=== PATIENT | female | born 1975 | race Caucasian/White ===

== ENCOUNTER 2017-03-11 19:18 | Emergency (ER) | payer BC ==
[~2017-03-11] VITALS: Ht 167.6 cm; Wt 79.0 kg
[~2017-03-11 19:18] MED LIST: NOTE
[2017-03-11 19:22] VITALS: TEMP 36.5; Ht 167.6 cm; Wt 79.0 kg
[2017-03-11] MEDS ORDERED: SODIUM CHLORIDE 0.9% 1000ML 1,000 ML IV STA (19:39)
[2017-03-11] MEDS ORDERED: ONDANSETRON INJ 2 MG/ML 2 ML VIAL IV STA (19:39)
[2017-03-11] MEDS ORDERED: MoRPHine SULFATE 4 MG/ML 1 ML CARP\\VIAL IV PRN (19:45)
--- NOTE | 2017-03-11 20:09 | DIAGNOSTIC IMAGING REPORT ---
SINGLE VIEW CHEST CLINICAL HISTORY: Generalized abdominal pain. FINDINGS: An AP, portable, upright chest radiograph is obtained. No prior studies are available for comparison at the time of dictation. The cardiomediastinal silhouette is unremarkable. The lungs and pleural spaces are clear. No pneumothorax is seen. The bony thorax is grossly intact. IMPRESSION: No active disease in the chest. Electronically signed by: Chung Forte M.D. 03/11/2017 8:08 PM Dictated Date/Time: 03/11/2017 8:07 PM
[2017-03-11 20:10] LABS: BASO % 0.1 %; BASO ABS # 0.01 K/uL (0-0.2); EOS % 3.6 %; EOS ABS # 0.26 K/uL (0-0.5); HEMATOCRIT 35.3 % (37-47); HEMOGLOBIN 11.6 g/dL (12.0-16.0); IG# 0.01 K/uL (0.00-0.02); LYMPH % 25.8 %; LYMPH ABS # 1.86 K/uL (1.2-3.4); MEAN CELL VOLUME 81.3 fL (80-100); MEAN CORPUSCULAR HEMOGLOBIN 26.7 pg (25-34); MEAN CORPUSCULAR HGB CONC 32.9 g/dl (32-36); MEAN PLATELET VOLUME 9.8 fL (7.4-10.4); MONO ABS # 0.58 K/uL (0.11-0.59); NEUT % 62.4 %; NEUT ABS # 4.49 K/uL (1.4-6.5); PLATELET COUNT 235 K/uL (130-400); RED CELL DISTRIBUTION WIDTH CV 15.7 % (11.5-14.5); WHITE BLOOD COUNT 7.21 K/uL (4.8-10.8)
[2017-03-11] MEDS ORDERED: LEVO50TA PO (20:25)
[2017-03-11] MEDS ORDERED: CYAN500T13 PO (20:25)
[2017-03-11] MEDS ORDERED: FURO-85 PO (20:25)
[2017-03-11] MEDS ORDERED: PLEC3TAB PO (20:25)
[2017-03-11] MEDS ORDERED: RANI300T2 PO (20:25)
[2017-03-11] MEDS ORDERED: METO1TAB54 PO (20:25)
[2017-03-11] MEDS ORDERED: SUCR1TAB29 PO (20:25)
[2017-03-11] MEDS ORDERED: MISC4CAP PO (20:25)
[2017-03-11] MEDS ORDERED: CALC-44 PO (20:25)
[2017-03-11] MEDS ORDERED: CLON0.5T3 PO (20:25)
[2017-03-11] MEDS ORDERED: AMT50 PO (20:25)
[2017-03-11] MEDS ORDERED: ERGO500011 PO (20:25)
[2017-03-11] MEDS ORDERED: POTA10CA28 PO (20:25)
[2017-03-11] MEDS ORDERED: PANT40TA PO (20:25)
[2017-03-11] MEDS ORDERED: HYDR-3124 PO (20:25)
[2017-03-11] MEDS ORDERED: VNTHFA/IN INH (20:25)
[2017-03-11] MEDS ORDERED: ONDA8TAB6 PO (20:25)
[2017-03-11 20:28] LABS: ALBUMIN 3.8 gm/dl (3.4-5.0); ALT/SGPT 25 U/L (12-78); BLOOD UREA NITROGEN 16 mg/dl (7-18); CALCIUM 8.8 mg/dl (8.5-10.1); CARBON DIOXIDE 23 mmol/L (21-32); CREATININE 0.62 mg/dl (0.60-1.20); GLUCOSE 107 mg/dl (70-99); LIPASE 122 U/L (73-393); POTASSIUM 3.6 mmol/L (3.5-5.1); SODIUM 138 mmol/L (136-145)
[2017-03-11 20:30] LABS: ALKALINE PHOSPHATASE 83 U/L (45-117); AST/SGOT 18 U/L (15-37); TOTAL PROTEIN 7.9 gm/dl (6.4-8.2)
--- NOTE | 2017-03-11 20:40 | DIAGNOSTIC IMAGING REPORT ---
CT SCAN OF THE ABDOMEN AND PELVIS WITHOUT IV CONTRAST CLINICAL HISTORY: Left lower quadrant abdominal pain. Nausea and vomiting. COMPARISON STUDY: No priors. TECHNIQUE: CT scan of the abdomen and pelvis is performed from the lung bases to the proximal femora. Images are reviewed in the axial, sagittal, and coronal planes. IV contrast was not administered for this examination as per the referring clinician. Note that the examination was performed suboptimal fashion without oral and IV contrast. A dose lowering technique was utilized adhering to the principles of ALARA. CT DOSE: 419.84 mGy.cm FINDINGS: Lung bases: The heart is normal in size and without pericardial effusion. The lung bases are clear. Liver: The unenhanced liver is normal in size, contour, and attenuation. There is no intrahepatic biliary ductal dilatation. Gallbladder: Surgically absent noting clips in the gallbladder fossa. Spleen: Normal in size and attenuation. A 1.6 cm low-attenuation lesion in the spleen is seen on image #84. Statistically this is of doubtful significance. Pancreas: Unremarkable. Adrenal glands: Unremarkable. Kidneys: The unenhanced kidneys are normal in size and without hydronephrosis. There are no renal calculi identified. There is no evidence of contour deforming renal mass lesion. Abdominal vasculature: The abdominal aorta is normal in course and caliber. Bowel: There is mild colonic diverticulosis without CT evidence of acute diverticulitis. No bowel obstruction is seen. Mild colonic fecal retention is observed. The appendix is well-visualized and normal. Peritoneum: There is no intraperitoneal free air or abdominal ascites. There is a fat-containing umbilical hernia. Lymphadenopathy: None. Pelvic viscera: The bladder is decompressed and grossly unremarkable. The uterus is surgically absent. No adnexal lesion is seen. Skeletal structures: No lytic or blastic lesions are seen. There is mild lumbar scoliosis. IMPRESSION: 1. Suboptimal examination without oral and IV contrast. 2. There are no acute infectious or inflammatory findings in the abdomen or pelvis. Electronically signed by: Chung Forte M.D. 03/11/2017 8:38 PM Dictated Date/Time: 03/11/2017 8:35 PM
[2017-03-11] MEDS ORDERED: LEVO-366 PO (21:06)
[2017-03-11] MEDS ORDERED: METR-163 PO (21:06)
[2017-03-11] MEDS ORDERED: CYAN1SUB12 SL (21:06)
[2017-03-11] MEDS ORDERED: FLUT1INH INH (21:06)
[2017-03-11] MEDS ORDERED: CALC625T13 PO (21:06)
[2017-03-11] MEDS ORDERED: CALC1CHW2 PO (21:06)
[2017-03-11] MEDS ORDERED: METF500T5 PO (21:06)
[2017-03-11] MEDS ORDERED: CLBCRM30 EXT (21:06)
[2017-03-11 21:14] VITALS: BP 112/79; PULSE 73; O2SAT 100
--- NOTE | 2017-03-11 21:16 | EMERGENCY ROOM VISIT NOTE ---
History Report prepared by Vishal: Petra Torres Under the Supervision of: Dr. Ryan Mcallister D.O. First contact with patient: 19:26 Chief Complaint: VOMITING Stated Complaint: NAUSEA,VOMITING,ABD PAIN, ALL FOR 4 DAYS History of Present Illness The patient is a 42 year old female who presents to the Emergency Room with complaints of persistent abdominal pain starting 4 days ago. She describes the pain as sharp. The pain worsens intermittently and when it does she feels nauseous and she vomits. She does not feel better after vomiting. She states that she has been unable to keep anything down except for some liquids. She saw her PCP 2 days ago and had an X-ray which did not show any constipation. She was found to have wheezing on one side and was started on antibiotics for an infection. She has been unable to take her medications because of the vomiting. She called her doctor today and was sent to the ED. She felt weak when she woke up this morning and feels like she needs to eat. She noticed today that her urine is dark. She has been coughing. She has had a headache. She has had looser stools which she attributes to only drinking liquids recently. She denies any diarrhea or fever. She denies any sick contacts. She has a history of diverticulitis and other GI problems. Source of History: patient Onset: 4 days ago Position: abdomen Quality: sharp Timing: other (persistent) Associated Symptoms: + headache, + cough, + nausea, + vomiting, + urinary symptoms, + weakness, No fevers, No diarrhea Review of Systems See HPI for pertinent positives & negatives. A total of 10 systems reviewed and were otherwise negative. Past Medical & Surgical Medical Problems: (1) Irritable colon Family History Heart disease Hypertension Social History Smoking Status: Former Smoker Alcohol Use: none Drug Use: none Marital Status: Housing Status: lives with family Occupation Status: employed Current/Historical Medications Scheduled Amitriptyline Hcl (Elavil), 50 MG PO HS Calcium Carbonate-Vitamin D (Caltrate 600+D 600-400 mg-Unit), 1 TAB PO BID Calcium Polycarbophil (Fiber Tabs), 2-3 TABS PO DAILY Cyanocobalamin (Vitamin B-12), 2,500 MCG SL DAILY Ergocalciferol (Vitamin D 51287 Unit), 1 TAB PO WK Fluticasone Furoate-Vilanterol (Breo Ellipta), 1 PUFF INH DAILY Furosemide (Lasix), 20 MG PO DAILY Levofloxacin (Levaquin), 500 MG PO DAILY Levothyroxine Sodium (Synthroid), 50 MCG PO DAILY Metformin Hcl Er (Glucophage Er), 1 TAB PO UD Metoclopramide Hcl (Reglan), 5 MG PO AC Metronidazole (Flagyl), 500 MG PO TID Pantoprazole (Protonix), 40 MG PO BID Plecanatide (Trulance), 3 MG PO DAILY Potassium Chloride (Micro-K Ext Rel), 10 MEQ PO DAILY Probiotic Product (Align), 4 MG PO DAILY Ranitidine Hcl (Zantac), 300 MG PO HS Sucralfate (Carafate), 1 GM PO ACHS Scheduled PRN Albuterol Hfa (Ventolin Hfa), 2 PUFFS INH Q6H PRN for SOB/Wheezing Clobetasol Propionate (Clobetasol Propionate Cream 0.05%), 1 APPLN EXT HS PRN for AFFECTED AREA Clonazepam (Klonopin), 0.5 MG PO TID PRN for Anxiety Hydroxyzine Hcl (Atarax), 25 MG PO TID PRN for Ondansetron Hcl (Zofran), 8 MG PO Q8 PRN for Nausea Allergies Coded Allergies: Shellfish (Verified Allergy, Severe, ANAPHYLAXIS, 03/11/17) Hydromorphone (Verified Allergy, Intermediate, itching, 10/31/12) Uncoded Allergies: SULFA (Allergy, Severe, swelling, 10/31/12) Physical Exam Vital Signs Date Time Temp Pulse Resp B/P (MAP) Pulse Ox O2 Delivery O2 Flow Rate FiO2 03/11/17 21:14 73 18 112/79 100 Room Air 03/11/17 19:22 36.5 89 18 136/91 99 Room Air Physical Exam CONSTITUTIONAL/VITAL SIGNS: Reviewed / noted above. GENERAL: Non-toxic in appearance. INTEGUMENTARY: Warm, dry, and [place]. HEAD: Normocephalic. EYES: without scleral icterus or trauma. ENT/OROPHARYNX: clear and moist. LYMPHADENOPATHY/NECK: Is supple without lymphadenopathy or meningismus. RESPIRATORY: Lungs clear and equal. CARDIOVASCULAR: Regular rate and rhythm. GI/ABDOMEN: Soft. Epigastric and LUQ tenderness to palpation. No organomegaly or pulsatile mass. No rebound or guarding. Normal bowel sounds. EXTREMITIES: Warm and well perfused. BACK: No CVA tenderness. NEUROLOGICAL: Intact without focal deficits. PSYCHIATRIC: normal affect. MUSCULOSKELETAL: Normally developed with good muscle tone. Medical Decision & Procedures ER Provider Diagnostic Interpretation: X ray results and stated below per my interpretation and radiology interpretation. Radiology results as stated below per my review and radiologist interpretation: SINGLE VIEW CHEST CLINICAL HISTORY: Generalized abdominal pain. FINDINGS: An AP, portable, upright chest radiograph is obtained. No prior studies are available for comparison at the time of dictation. The cardiomediastinal silhouette is unremarkable. The lungs and pleural spaces are clear. No pneumothorax is seen. The bony thorax is grossly intact. IMPRESSION: No active disease in the chest. Electronically signed by: Chung Forte M.D. 03/11/2017 8:08 PM Dictated Date/Time: 03/11/2017 8:[address] SCAN OF THE ABDOMEN AND PELVIS WITHOUT IV CONTRAST CLINICAL HISTORY: Left lower quadrant abdominal pain. Nausea and vomiting. COMPARISON STUDY: No priors. TECHNIQUE: CT scan of the abdomen and pelvis is performed from the lung bases to the proximal femora. Images are reviewed in the axial, sagittal, and coronal planes. IV contrast was not administered for this examination as per the referring clinician. Note that the examination was performed suboptimal fashion without oral and IV contrast. A dose lowering technique was utilized adhering to the principles of ALARA. CT DOSE: 419.84 mGy.cm FINDINGS: Lung bases: The heart is normal in size and without pericardial effusion. The lung bases are clear. Liver: The unenhanced liver is normal in size, contour, and attenuation. There is no intrahepatic biliary ductal dilatation. Gallbladder: Surgically absent noting clips in the gallbladder fossa. Spleen: Normal in size and attenuation. A 1.6 cm low-attenuation lesion in the spleen is seen on image #84. Statistically this is of doubtful significance. Pancreas: Unremarkable. Adrenal glands: Unremarkable. Kidneys: The unenhanced kidneys are normal in size and without hydronephrosis. There are no renal calculi identified. There is no evidence of contour deforming renal mass lesion. Abdominal vasculature: The abdominal aorta is normal in course and caliber. Bowel: There is mild colonic diverticulosis without CT evidence of acute diverticulitis. No bowel obstruction is seen. Mild colonic fecal retention is observed. The appendix is well-visualized and normal. Peritoneum: There is no intraperitoneal free air or abdominal ascites. There is a fat-containing umbilical hernia. Lymphadenopathy: None. Pelvic viscera: The bladder is decompressed and grossly unremarkable. The uterus is surgically absent. No adnexal lesion is seen. Skeletal structures: No lytic or blastic lesions are seen. There is mild lumbar scoliosis. IMPRESSION: 1. Suboptimal examination without oral and IV contrast. 2. There are no acute infectious or inflammatory findings in the abdomen or pelvis. Electronically signed by: Chung Forte M.D. 03/11/2017 8:38 PM Dictated Date/Time: 03/11/2017 8:35 PM Laboratory Results 03/11/17 20:00 Red Blood Count 4.34, Mean Corpuscular Volume 81.3, Mean Corpuscular Hemoglobin 26.7, Mean Corpuscular Hemoglobin Concent 32.9, Mean Platelet Volume 9.8, Neutrophils (%) (Auto) 62.4, Lymphocytes (%) (Auto) 25.8, Monocytes (%) (Auto) 8.0, Eosinophils (%) (Auto) 3.6, Basophils (%) (Auto) 0.1, Neutrophils # (Auto) 4.49, Lymphocytes # (Auto) 1.86, Monocytes # (Auto) 0.58, Eosinophils # (Auto) 0.26, Basophils # (Auto) 0.01 03/11/17 20:00 Test 03/11/17 19:34 03/11/17 20:00 Urine Color DK YELLOW Urine Appearance CLEAR (CLEAR) Urine pH 5.5 (4.5-7.5) Urine Specific [place] 1.030 (1.000-1.030) Urine Protein TRACE (NEG) Urine Glucose (UA) NEG (NEG) Urine Ketones TRACE (NEG) Urine Occult Blood 2+ (NEG) Urine Nitrite NEG (NEG) Urine Bilirubin NEG (NEG) Urine Urobilinogen NEG (NEG) Urine Leukocyte Esterase SMALL (NEG) Urine WBC (Auto) 1-5 /hpf (0-5) Urine RBC (Auto) >30 /hpf (0-4) Urine Hyaline Casts (Auto) 1-5 /lpf (0-5) Urine Epithelial Cells (Auto) >30 /lpf (0-5) Urine Bacteria (Auto) NEG (NEG) Urine Pathogenic Casts /lpf (0) Urine Mucus PRESENT (NONE PRSENT) Urine Test NEG (NEG) White Blood Count 7.21 K/uL (4.8-10.8) Red Blood Count 4.34 M/uL (4.2-5.4) Hemoglobin 11.6 g/dL (12.0-16.0) Hematocrit 35.3 % (37-47) Mean Corpuscular Volume 81.3 fL (80-100) Mean Corpuscular Hemoglobin 26.7 pg (25-34) Mean Corpuscular Hemoglobin Concent 32.9 g/dl (32-36) Platelet Count 235 K/uL (130-400) Mean Platelet Volume 9.8 fL (7.4-10.4) Neutrophils (%) (Auto) 62.4 % Lymphocytes (%) (Auto) 25.8 % Monocytes (%) (Auto) 8.0 % Eosinophils (%) (Auto) 3.6 % Basophils (%) (Auto) 0.1 % Neutrophils # (Auto) 4.49 K/uL (1.4-6.5) Lymphocytes # (Auto) 1.86 K/uL (1.2-3.4) Monocytes # (Auto) 0.58 K/uL (0.11-0.59) Eosinophils # (Auto) 0.26 K/uL (0-0.5) Basophils # (Auto) 0.01 K/uL (0-0.2) RDW Standard Deviation 47.0 fL (36.4-46.3) RDW Coefficient of Variation 15.7 % (11.5-14.5) Immature Granulocyte % (Auto) 0.1 % Immature Granulocyte # (Auto) 0.01 K/uL (0.00-0.02) Anion Gap 11.0 mmol/L (3-11) Est Creatinine Clear Calc Drug Dose 125.3 ml/min Estimated GFR () 128.9 Estimated GFR (Non- 111.2 BUN/Creatinine Ratio 25.4 (10-20) Calcium Level 8.8 mg/dl (8.5-10.1) Total Bilirubin 0.3 mg/dl (0.2-1) Direct Bilirubin < 0.1 mg/dl (0-0.2) Aspartate Amino Transf (AST/SGOT) 18 U/L (15-37) Alanine Aminotransferase (ALT/SGPT) 25 U/L (12-78) Alkaline Phosphatase 83 U/L (45-117) Total Protein 7.9 gm/dl (6.4-8.2) Albumin 3.8 gm/dl (3.4-5.0) Lipase 122 U/L (73-393) Laboratory results as stated above per my review. Medications Administered Medications (Trade) Dose Ordered Sig/Renetta Route Start Time Stop Time Status Last Admin Dose Admin Sodium Chloride 1,000 ml @ 999 mls/hr Q1H1M STAT IV 03/11/17 19:39 03/11/17 20:39 DC 03/11/17 20:09 999 MLS/HR Ondansetron HCl (Zofran Inj) 4 mg NOW STAT IV 03/11/17 19:39 03/11/17 19:42 DC 03/11/17 20:10 4 MG Morphine Sulfate (MoRPHine SULFATE INJ) 4 mg Q1H PRN IV 03/11/17 19:45 03/25/17 19:44 03/11/17 20:10 4 MG ECG Indication: weakness Rate (beats per minute): 80 Rhythm: normal sinus Findings: no ectopy, other (no acute injury) ED Course 1930: Previous medical records were reviewed. The patient was evaluated in room B12B. A complete history and physical examination was performed. 1938: Zofran Inj 4 mg IV, NSS 1000 ml @ 999 mls/hr IV. 1944: Morphine Sulfate 4 mg IV. 2106: On reevaluation, the patient is resting comfortably. I discussed the results and findings with the patient. She verbalized agreement of the treatment plan. She was discharged home. Medical Decision Differential diagnosis: Etiologies such as gastroenteritis, food borne illness, infections, appendicitis , diverticulitis, inflammatory bowel disease, obstruction, GI bleed, biliary pathology, as well as others were entertained. This is a 42-year-old female who presents to the ED with a chief complaint of nausea and vomiting as well as upper abdominal pain. The patient states that she has had the symptoms for about 4 days. She denies having any diarrhea. She has been trying to keep down fluids but states that she does not keep them down well. The patient states that her symptoms started 4 days ago and her initial symptoms started with the vomiting as well as a discomfort in the epigastric area. She denies any sick contacts. She also reports a cough that aggravates her abdominal discomfort. Her vital signs are normal. Her physical exam revealed some tenderness to the left upper quadrant and epigastric area. Her mucous membranes are moist. She is in no distress. Her vital signs are normal. CBC is unremarkable, urinalysis revealed trace ketones. No evidence of infection. test was negative. CT scan of the abdomen pelvis did not show acute process. Chest x-ray was negative for acute disease. The patient was treated with IV morphine, IV Zofran and IV fluids. On reassessment , she appears better. She is felt to be stable for discharge and outpatient follow-up. She does have Zofran ODT at home. Medication Reconcilliation Current Medication List: was personally reviewed by me Blood Pressure Screening Patient's blood pressure: Elevated blood pressure Blood pressure disposition: Elevated BP felt to be situational Impression Primary Impression: Vomiting Additional Impression: Upper abdominal pain Scribe Attestation The scribe's documentation has been prepared under my direction and personally reviewed by me in its entirety. I confirm that the note above accurately reflects all work, treatment, procedures, and medical decision making performed by me. Departure Information Dispostion Home / Self-Care Referrals Kiarra Camacho PA-C (PCP) Patient Instructions My [facility] Additional Instructions Follow-up with your doctor for further care and evaluation in 1-2 days. Return to the emergency department for worsening or new symptoms or any concerns. You have been examined and treated today on an emergency basis only. This is not a substitute for, or an effort to provide, complete comprehensive medical care. It is impossible to recognize and treat all injuries or illnesses in a single emergency department visit. It is therefore important that you follow up closely with your doctor. Call as soon as possible for an appointment. Take your Zofran for nausea and vomiting. Problem Qualifiers
== END 2017-03-11 21:51 | disposition home or self-care (01) ==
LOC: C.EDB 19:21
DX: R11.10 Vomiting, unspecified (principal); R10.10 Upper abdominal pain, unspecified; K58.9 Irritable bowel syndrome, unspecified; Z87.891 Personal history of nicotine dependence; Z79.84 Long term (current) use of oral hypoglycemic drugs; Z79.899 Other long term (current) drug therapy; Z88.5 Allergy status to narcotic agent; Z91.018 Allergy to other foods; Z82.49 Family history of ischemic heart disease and other diseases of the circulatory system